=== PATIENT | male | born 1935 | race Caucasian/White ===

== ENCOUNTER 2020-08-05 21:32 | Inpatient (IN) | payer BC ==
[~2020-08-05] VITALS: Ht 182.9 cm; Wt 90.7 kg
[2020-08-05 21:39] VITALS: BP 98/49
[2020-08-05 22:05] LABS: ABSOLUTE LYMPHOCYTES 0.5 thou/uL (0.8-5.3); ABSOLUTE MONOCYTES 0.6 thou/uL (0.0-1.2); ABSOLUTE NEUTROPHILS 5.4 thou/uL (1.6-8.1); BASOPHILS 0.5 %; EOSINOPHILS 0.4 %; LYMPHOCYTES 7.3 %; MCH 28.3 pg (26.0-34.0); MCHC 32.2 g/dL (28.0-37.0); MCV 87.9 fL (80.0-100.0); MPV 10.2 fl. (7.2-11.1); NUCLEATED RBCS 0 /100WBC; PLATELET COUNT* 125 thou/uL (150-400); POLYS 82.8 %; RBC 3.87 mil/uL (4.50-6.00); RDW-CV 17.2 % (10.5-14.5); WBC 6.5 thou/uL (4.0-11.0)
[2020-08-05 22:14] LABS: CALCIUM 8.2 mg/dL (8.5-10.1); CREATININE 1.6 mg/dL (0.6-1.3); POTASSIUM 4.7 mmol/L (3.5-5.1)
[2020-08-05] MEDS ORDERED: DOLOGEN CAPLET1 EACH PO (22:23)
[2020-08-05 22:25] LABS: ALBUMIN 2.5 g/dL (3.4-5.0); TOTAL BILIRUBIN 0.5 mg/dL (<0.1-1.0); TOTAL PROTEIN 6.8 g/dL (6.4-8.2)
[2020-08-05] MEDS ORDERED: LAC-HYDRIN FIV226 GM TOP (22:25)
[2020-08-05] MEDS ORDERED: ASPERCREME1 EACH TOP (22:25)
[2020-08-05] MEDS ORDERED: PROAIR DIGIHAL90 MCG (22:25)
[2020-08-05] MEDS ORDERED: BISACODYL10 MG (22:28)
[2020-08-05] MEDS ORDERED: CARTIA XT120 M1 PO (22:29)
[2020-08-05] MEDS ORDERED: ELIQUIS5 MG PO (22:30)
[2020-08-05] MEDS ORDERED: LACTINEX CHEWA1 EACH PO (22:31)
[2020-08-05] MEDS ORDERED: GLIPIZIDE 10 MG10 MG PO (22:31)
[2020-08-05] MEDS ORDERED: FUROSEMIDE 40 M40 MG PO (22:31)
[2020-08-05] MEDS ORDERED: LISINOPRIL2.5 MG PO (22:32)
[2020-08-05] MEDS ORDERED: LOPERAMIDE 2 MG2 M1 PO (22:33)
[2020-08-05] MEDS ORDERED: MILK OF MA400 MG/5 M PO (22:35)
[2020-08-05] MEDS ORDERED: TOPROL XL100 MG PO (22:35)
[2020-08-05] MEDS ORDERED: MIRALAX119 GM PO (22:36)
[2020-08-05] MEDS ORDERED: UROCIT-K10 ME1 PO (22:38)
[2020-08-05] MEDS ORDERED: ROSUVASTATIN CA20 MG PO (22:38)
[2020-08-05] MEDS ORDERED: SERTRALINE HCL50 MG PO (22:40)
--- NOTE | 2020-08-05 22:46 | NUR ---
PT UP TO BEDSIDE, ATTEMPTED TO VOID, PT SOA WITH EXERTION, AUDIBLE WHEEZES WITH EXERTION; CALL LIGHT WITH IN REACH, VOCID PRECAUTIONS MAINTAINED
[2020-08-06] VITALS (7 sets, daily range): BP systolic 115–131; BP diastolic 48–86
--- NOTE | 2020-08-06 00:44 | NUR ---
PT TRANSFERRED TO HOSPITAL BED; MONITOR TRACING AFIB RATE CONTROL; PT ALERT AND ORIENT X4, APPROPRIATE, DENIES PAIN; IV ANBX INFUSING, CALL LIGHT WITHIN REACH; COVID PRECAUTIONS MAINTAINED
--- NOTE | 2020-08-06 09:37 | EKG ---
[place] [id number] ELECTROCARDIOGRAM REPORT Name: MICHELLE DIAS Room: [place] [address] ADM IN [facility].#: [id number] Admission: 08/05/20 Attend Phys: Devyn Lennon Discharge: Date of : 31 Date of Service: 08/05/202140 Report #: [id number] THIS REPORT FOR: //name// [facility] ED Test Date: 2020-08-05 Test Time: 21:41:57 Pat Name: MICHELLE DIAS Department: Room: [facility] Gender: M Game Designer/Creative Director: [place] : 1935 Requested By: Pollo Staples Order Number: [id number] MD: Bandar Recinos Measurements Intervals [place] Rate: 87 P: MD: QRS: -61 QRSD: 156 T: 48 QT: 432 QTc: 520 Interpretive Statements Atrial fibrillation RBBB and LAFB Baseline wander in lead(s) I,III,aVL,V3,V5,V6 No previous ECG available for comparison Electronically Signed On 08-06-2020 9:37:09 [employer] DETECTIVE by Bandar Recinos [email or web address] <ELECTRONICALLY SIGNED> By: Bandar Recinos MD, FACC 08/06/20 0937 40 40 Bandar Recinos MD, FAC /EPI
--- NOTE | 2020-08-06 23:17 | NUR ---
REPORT CALLED TO Marian OVERTON RN AT FOR BED [id number]. TRANSFER FORMS FAXED TO [facility].
--- NOTE | 2020-08-07 00:05 | NUR ---
PATIENT LEFT UNIT BY STRETCHER [facility] AMB TRANSPORT IN STABLE CONDITION WITH ALL BELONGINGS. PATIENT REFUSED TO HAVE FAMILY CALLED AT THIS HOUR.
== END 2020-08-07 00:10 | disposition short-term general hospital (02) | DRG 177 ==
LOC: M.ERS 21:32 → M.TBA-ER 23:22 → M.2W 23:22
PROVIDERS: Emergency Medicine Emergency Medical Services; ADMIT Internal Medicine; ATTEND Internal Medicine
PROC: XW033E5 Introduction of Remdesivir Anti-infective into Peripheral Vein, Percutaneous Approach, New Technology Group 5 (ICD-10-PCS; principal; 2020-08-06)
PROC: B54NZZA Ultrasonography of Left Upper Extremity Veins, Guidance (ICD-10-PCS; principal; 2020-08-06)
PROC: 05HF33Z Insertion of Infusion Device into Left Cephalic Vein, Percutaneous Approach (ICD-10-PCS; principal; 2020-08-06)
DX: U07.1 COVID-19 (principal); J12.89 Other viral pneumonia; J96.01 Acute respiratory failure with hypoxia; N17.0 Acute kidney failure with tubular necrosis; J15.6 Pneumonia due to other Gram-negative bacteria; E87.1 Hypo-osmolality and hyponatremia; I48.91 Unspecified atrial fibrillation; E11.9 Type 2 diabetes mellitus without complications; Z79.84 Long term (current) use of oral hypoglycemic drugs; Z79.899 Other long term (current) drug therapy; Z79.01 Long term (current) use of anticoagulants; Z88.0 Allergy status to penicillin